=== PATIENT | male | born 1975 | race Caucasian/White ===

== ENCOUNTER 2024-09-29 12:05 | Inpatient (IN) | payer OTHER ==
[2024-09-29] MEDS: LACTATED RINGERS SOLUTION 1000 ML INFUS.BAG IV ONE ×3 (13:24→23:33)
[2024-09-29 13:32] LABS: VENOUS BASE EXCESS -3.8 mmol/L (-2-2); VENOUS O2 SATURATION 95.2 % (70-80); VENOUS PCO2 38.8 mmHg (38-52); VENOUS PH 7.356 (7.310-7.410)
[2024-09-29 13:40] LABS: BASO % 1.7 % (0-2.0); EOS % 1.3 % (0-4.5); HEMATOCRIT 43.3 % (35.4-49); HEMOGLOBIN 15.2 GM/dL (11.7-16.9); LYMPH % 25.1 % (8-40); MCH 31.9 pg (25.7-33.7); MEAN CELL VOLUME 91.3 fl (80-96); MEAN PLT VOLUME 9.6 fl (7.5-11.1); MONO % 6.2 % (3.8-10.2); NEUT % 65.7 % (42.8-82.8); PLATELET COUNT 300 10^3/uL (134-434); RBC 4.75 M/mm3 (4.00-5.60); RDW 12.9 % (11.9-15.9); WHITE BLOOD COUNT 9.6 K/mm3 (4.0-10.0)
[2024-09-29 13:42] LABS: URINE APPEARANCE CLEAR; URINE BILIRUBIN NEGATIVE (NEGATIVE); URINE COLOR YELLOW; URINE GLUCOSE (UA) 3+ (NEGATIVE); URINE KETONE 1+ (NEGATIVE); URINE LEUK ESTERASE NEGATIVE (NEGATIVE); URINE NITRITE NEGATIVE (NEGATIVE); URINE PROTEIN NEGATIVE (NEGATIVE); URINE UROBILINOGEN 0.2 mg/dL (0.2-1.0)
[2024-09-29 14:01] LABS: CHLORIDE 79 mmol/L (98-107); POTASSIUM 4.9 mmol/L (3.5-5.1); SODIUM 120 mmol/L (136-145)
[2024-09-29 14:04] LABS: ALBUMIN 3.8 g/dl (3.4-5.0)
[2024-09-29 14:05] LABS: ANION GAP 19 mmol/L (4-13); BLOOD UREA NITROGEN 46.7 mg/dL (7-18); CALCIUM 10.2 mg/dL (8.5-10.1); CO2 22 mmol/L (21-32)
[2024-09-29 14:08] LABS: CREATININE 1.6 mg/dL (0.55-1.3); PHOSPHOROUS 5.8 mg/dL (2.5-4.9)
[2024-09-29 14:09] LABS: BILIRUBIN,TOTAL 0.8 mg/dL (0.2-1)
[2024-09-29 14:10] LABS: ALK PHOS 97 U/L (45-117)
[2024-09-29 14:20] LABS: SGOT/AST 29 U/L (15-37); TOT PROT 7.6 g/dl (6.4-8.2)
[2024-09-29 14:43] LABS: GLUCOSE,RANDOM 811 mg/dL (74-106)
[2024-09-29] MEDS: SODIUM CHLORIDE 0.9% 500 ML INFUS.BAG IV ONE (15:16)
[2024-09-29 15:52] LABS: CHLORIDE 86 mmol/L (98-107); POTASSIUM 4.8 mmol/L (3.5-5.1); SODIUM 125 mmol/L (136-145)
[2024-09-29 15:54] LABS: ANION GAP 12 mmol/L (4-13); BLOOD UREA NITROGEN 40.2 mg/dL (7-18); CALCIUM 9.2 mg/dL (8.5-10.1); CO2 27 mmol/L (21-32)
[2024-09-29 15:57] LABS: CREATININE 1.4 mg/dL (0.55-1.3)
[2024-09-29] MEDS ORDERED: POTASSIUM CHLORIDE 10 MEQ in SODIUM CHLORIDE 1,000 ML IVPB SCH (16:00)
[2024-09-29 16:01] LABS: GLUCOSE,RANDOM 605 mg/dL (74-106)
[2024-09-29 16:22] LABS: HIV INTERPRETATION NEGATIVE (NEGATIVE)
[2024-09-29] MEDS: SODIUM CHLORIDE 0.9%/KCL 20 MEQ/1,000 ML INFUS.BAG IV SCH (17:47)
[2024-09-29] MEDS: INSULIN REGULAR 100 UNITS in SODIUM CHLORIDE 99 ML IVPB SCH (17:47)
[2024-09-29 20:34] LABS: POTASSIUM 3.7 mmol/L (3.5-5.1)
[2024-09-29 20:36] LABS: BLOOD UREA NITROGEN 34.1 mg/dL (7-18); CALCIUM 9.2 mg/dL (8.5-10.1)
[2024-09-29 20:40] LABS: CREATININE 1.1 mg/dL (0.55-1.3)
[2024-09-29] MEDS: MUPIROCIN 2% TOPICAL OINTMENT FOR DECOLONIZATION NS SCH (22:30)
[2024-09-29] MEDS: CHLORHEXIDINE GLUCONATE 4% CLEANSER FOR DECOLONIZATION TP SCH (22:30)
[2024-09-29 23:15] LABS: BASO % 0.3 % (0-2.0); EOS % 3.4 % (0-4.5); HEMATOCRIT 38.8 % (35.4-49); HEMOGLOBIN 13.5 GM/dL (11.7-16.9); LYMPH % 44.8 % (8-40); MCH 31.5 pg (25.7-33.7); MCHC 34.8 g/dl (32.0-35.9); MEAN CELL VOLUME 90.4 fl (80-96); MONO % 6.3 % (3.8-10.2); NEUT % 45.2 % (42.8-82.8); PLATELET COUNT 237 10^3/uL (134-434); RBC 4.29 M/mm3 (4.00-5.60); RDW 12.9 % (11.9-15.9); WHITE BLOOD COUNT 8.7 K/mm3 (4.0-10.0)
[2024-09-29 23:25] LABS: POTASSIUM 4.1 mmol/L (3.5-5.1)
[2024-09-29 23:27] LABS: BLOOD UREA NITROGEN 30.4 mg/dL (7-18); CALCIUM 8.7 mg/dL (8.5-10.1); MAGNESIUM 2.2 mg/dL (1.8-2.4)
[2024-09-29 23:31] LABS: CREATININE 0.8 mg/dL (0.55-1.3); PHOSPHOROUS 3.8 mg/dL (2.5-4.9)
[2024-09-29 23:32] LABS: BILIRUBIN,TOTAL 0.5 mg/dL (0.2-1)
[2024-09-29] MEDS ORDERED: INSULIN ASPART SLIDING SCALE (NOVOLOG) 1 VIAL SQ SCH (23:40)
[2024-09-29 23:47] LABS: ALBUMIN 2.8 g/dl (3.4-5.0)
[2024-09-29] MEDS ORDERED: INSULIN DRIP - PLEASE ORDER UNDER SETS NR ONE (23:51)
[2024-09-30] MEDS: DEXTROSE 5%-WATER - 1,000 ML IV SCH (00:05)
[2024-09-30] MEDS: D5-NS + 20 MEQ KCL - 20 MEQ/1,000 ML INFUS.BAG IV SCH ×2 (00:51→11:24)
[2024-09-30] MEDS ORDERED: INSULIN REGULAR 100 UNITS in SODIUM CHLORIDE 99 ML IVPB SCH (03:15)
[2024-09-30] MEDS ORDERED: DEXTROSE 50%-WATER 25 GM/50 ML DISP.SYRIN ONE (04:53)
[2024-09-30] MEDS: DEXTROSE 50%-WATER - 25 GM/50 ML VIAL IVPUSH PRN (04:55)
[2024-09-30 08:04] LABS: MAGNESIUM 1.9 mg/dL (1.8-2.4)
[2024-09-30 08:07] LABS: PHOSPHOROUS 2.6 mg/dL (2.5-4.9)
[2024-09-30 09:44] LABS: POTASSIUM 3.3 mmol/L (3.5-5.1)
[2024-09-30 09:46] LABS: CALCIUM 8.4 mg/dL (8.5-10.1)
[2024-09-30 09:50] LABS: CREATININE 0.6 mg/dL (0.55-1.3)
[2024-09-30 09:56] LABS: BLOOD UREA NITROGEN 18.6 mg/dL (7-18)
[2024-09-30] MEDS ORDERED: INSULIN ASPART SLIDING SCALE (NOVOLOG) 1 VIAL SQ SCH ×2 (11:00→23:39)
[2024-09-30] MEDS: INSULIN REGULAR 100 UNITS in SODIUM CHLORIDE 99 ML IVPB SCH (11:21)
[2024-09-30 11:23] LABS: BASO % 2.2 % (0-2.0); EOS % 3.4 % (0-4.5); HEMOGLOBIN 13.1 GM/dL (11.7-16.9); LYMPH % 43.6 % (8-40); MCH 31.3 pg (25.7-33.7); MCHC 34.4 g/dl (32.0-35.9); MEAN CELL VOLUME 90.8 fl (80-96); MEAN PLT VOLUME 9.5 fl (7.5-11.1); MONO % 8.1 % (3.8-10.2); NEUT % 42.7 % (42.8-82.8); PLATELET COUNT 229 10^3/uL (134-434); RBC 4.18 M/mm3 (4.00-5.60); RDW 12.8 % (11.9-15.9); WHITE BLOOD COUNT 8.6 K/mm3 (4.0-10.0)
[2024-09-30] MEDS: POTASSIUM CHLORIDE ORAL LIQUID 20 MEQ/15 ML PO ONE (11:24)
[2024-09-30] MEDS ORDERED: BUPRENORPHINE/NALOXONE 8 MG/2 MG FILM PACKET SL SCH (12:30)
[2024-09-30] MEDS ORDERED: BUPRENORPHINE/NALOXONE 8 MG/2 MG FILM PACKET SL PRN (12:48)
[2024-09-30] MEDS: amLODIPine BESYLATE 5 MG TABLET (FP) PO SCH (12:56)
[2024-09-30] MEDS: ATORVASTATIN CA 40 MG TABLET (FP) PO SCH (12:56)
[2024-09-30] MEDS ORDERED: D5-NS + 20 MEQ KCL - 20 MEQ/1,000 ML INFUS.BAG IV SCH (13:00)
[2024-09-30] MEDS ORDERED: DEXTROSE 5%-NORMAL SALINE 1,000 ML IV SCH (13:00)
[2024-09-30 13:15] LABS: POTASSIUM 3.9 mmol/L (3.5-5.1)
[2024-09-30 13:17] LABS: CALCIUM 8.2 mg/dL (8.5-10.1)
[2024-09-30 13:18] LABS: ALBUMIN 2.9 g/dl (3.4-5.0); BLOOD UREA NITROGEN 20.7 mg/dL (7-18)
[2024-09-30 13:21] LABS: CREATININE 0.7 mg/dL (0.55-1.3)
[2024-09-30 13:22] LABS: BILIRUBIN,TOTAL 0.5 mg/dL (0.2-1)
[2024-09-30] MEDS: TRIAMTERENE AND HCTZ - 37.5 MG/25 MG CAPSULE PO SCH (13:24)
[2024-09-30] MEDS: VALSARTAN 160 MG TABLET PO SCH (13:24)
[2024-09-30] MEDS: FENOFIBRIC ACID 135 MG CAP PO SCH (15:16)
[2024-09-30] MEDS: BUPRENORPHINE/NALOXONE 8 MG/2 MG FILM PACKET SL SCH (15:54)
[2024-09-30] MEDS: POLYETHYLENE GLYCOL (HEALTHYLAX) 3350 17 GM PACKET PO PRN (16:59)
[2024-09-30 18:46] LABS: POTASSIUM 3.9 mmol/L (3.5-5.1)
[2024-09-30 18:48] LABS: ALBUMIN 3.1 g/dl (3.4-5.0); CALCIUM 8.3 mg/dL (8.5-10.1)
[2024-09-30 18:49] LABS: BLOOD UREA NITROGEN 18.1 mg/dL (7-18)
[2024-09-30 18:52] LABS: CREATININE 0.6 mg/dL (0.55-1.3)
[2024-09-30 18:53] LABS: BILIRUBIN,TOTAL 0.3 mg/dL (0.2-1); TOT PROT 6.6 g/dl (6.4-8.2)
[2024-09-30] MEDS: DEXTROSE 5%-NORMAL SALINE 1,000 ML IV SCH (21:00)
[2024-09-30] MEDS: HEPARIN NA (PORCINE) 5,000 UNITS/ML 1ML VIAL SQ SCH (21:54)
[2024-10-01] MEDS: INSULIN REGULAR 100 UNITS in SODIUM CHLORIDE 99 ML IVPB SCH ×2 (01:30→17:05)
[2024-10-01 08:21] LABS: BASO % 0.4 % (0-2.0); EOS % 3.3 % (0-4.5); HEMATOCRIT 36.8 % (35.4-49); HEMOGLOBIN 12.7 GM/dL (11.7-16.9); MCH 31.6 pg (25.7-33.7); MCHC 34.4 g/dl (32.0-35.9); MEAN CELL VOLUME 91.8 fl (80-96); MEAN PLT VOLUME 9.4 fl (7.5-11.1); MONO % 5.8 % (3.8-10.2); NEUT % 46.5 % (42.8-82.8); PLATELET COUNT 208 10^3/uL (134-434); RBC 4.01 M/mm3 (4.00-5.60); RDW 12.9 % (11.9-15.9); WHITE BLOOD COUNT 8.6 K/mm3 (4.0-10.0)
[2024-10-01 08:45] LABS: POTASSIUM 3.3 mmol/L (3.5-5.1)
[2024-10-01 08:49] LABS: CHOLESTEROL 298 mg/dL (50-200)
[2024-10-01 08:50] LABS: LDL CHOLESTEROL (ONLY SJRH) 89 mg/dL (5-100)
[2024-10-01 08:51] LABS: ALBUMIN 2.7 g/dl (3.4-5.0); CALCIUM 8.3 mg/dL (8.5-10.1)
[2024-10-01 08:52] LABS: BLOOD UREA NITROGEN 14.4 mg/dL (7-18); HDL CHOLESTEROL 32 mg/dL (40-60)
[2024-10-01 08:53] LABS: MAGNESIUM 2.2 mg/dL (1.8-2.4)
[2024-10-01 08:55] LABS: BILIRUBIN,TOTAL 0.3 mg/dL (0.2-1); CREATININE 0.6 mg/dL (0.55-1.3); TOT PROT 5.4 g/dl (6.4-8.2)
[2024-10-01] MEDS: POTASSIUM CHLORIDE TABS 20 MEQ TABLET.ER (FP) PO SCH (10:16)
[2024-10-01] MEDS: INSULIN (LEVEMIR) 100 UNITS/ML UNITS SQ SCH ×2 (13:09→21:16)
[2024-10-01 15:43] VITALS: BMI 27.3
[2024-10-01] MEDS ORDERED: POTASSIUM CHLORIDE ORAL LIQUID 20 MEQ/15 ML PO ONE (16:55)
[2024-10-01] MEDS: DEXTROSE 5%-WATER - 1,000 ML IV SCH (17:07)
[2024-10-01] MEDS: KCL 10 MEQ IVPB 10 MEQ/100 ML INFUS.BAG IVPB SCH (17:45)
[2024-10-01 19:28] LABS: BLOOD UREA NITROGEN 13.8 mg/dL (7-18); CALCIUM 8.3 mg/dL (8.5-10.1)
[2024-10-01 19:30] LABS: CREATININE 0.7 mg/dL (0.55-1.3)
[2024-10-02] MEDS: DEXTROSE 50%-WATER 25 GM/50 ML DISP.SYRIN IVPUSH PRN (05:53)
[2024-10-02 07:38] LABS: BASO % 0.6 % (0-2.0); EOS % 4.4 % (0-4.5); HEMATOCRIT 36.6 % (35.4-49); HEMOGLOBIN 12.6 GM/dL (11.7-16.9); LYMPH % 43.7 % (8-40); MCH 31.4 pg (25.7-33.7); MCHC 34.3 g/dl (32.0-35.9); MEAN CELL VOLUME 91.5 fl (80-96); MEAN PLT VOLUME 9.4 fl (7.5-11.1); NEUT % 43.3 % (42.8-82.8); PLATELET COUNT 192 10^3/uL (134-434); RBC 4.01 M/mm3 (4.00-5.60); RDW 12.8 % (11.9-15.9); WHITE BLOOD COUNT 7.3 K/mm3 (4.0-10.0)
[2024-10-02 08:08] LABS: POTASSIUM 4.2 mmol/L (3.5-5.1)
[2024-10-02 08:11] LABS: ALBUMIN 2.8 g/dl (3.4-5.0); BLOOD UREA NITROGEN 8.7 mg/dL (7-18); CALCIUM 8.2 mg/dL (8.5-10.1); MAGNESIUM 2.2 mg/dL (1.8-2.4)
[2024-10-02 08:14] LABS: CREATININE 0.7 mg/dL (0.55-1.3)
[2024-10-02 08:15] LABS: PHOSPHOROUS 2.8 mg/dL (2.5-4.9)
[2024-10-02 08:16] LABS: BILIRUBIN,TOTAL 0.4 mg/dL (0.2-1); TOT PROT 5.7 g/dl (6.4-8.2)
[2024-10-02 19:00] LABS: POTASSIUM 3.9 mmol/L (3.5-5.1)
[2024-10-02 19:02] LABS: BLOOD UREA NITROGEN 10.8 mg/dL (7-18)
[2024-10-02 19:05] LABS: CREATININE 0.8 mg/dL (0.55-1.3)
[2024-10-02] MEDS: INSULIN REGULAR 100 UNITS in SODIUM CHLORIDE 99 ML IVPB SCH (20:16)
[2024-10-02] MEDS: DEXTROSE 10%-WATER - 1,000 ML IV SCH ×2 (20:16→21:56)
[2024-10-03] MEDS: DEXTROSE 10%-WATER - 1,000 ML IV SCH (01:30)
[2024-10-03 06:53] LABS: POTASSIUM 4.1 mmol/L (3.5-5.1)
[2024-10-03 06:56] LABS: BLOOD UREA NITROGEN 13.7 mg/dL (7-18); CALCIUM 8.4 mg/dL (8.5-10.1); MAGNESIUM 2.2 mg/dL (1.8-2.4)
[2024-10-03 07:00] LABS: CREATININE 0.8 mg/dL (0.55-1.3); PHOSPHOROUS 2.9 mg/dL (2.5-4.9)
[2024-10-03] MEDS ORDERED: INSULIN (LEVEMIR) 100 UNITS/ML UNITS SQ ONE ×2 (12:49→18:53)
[2024-10-03] MEDS: INSULIN (LEVEMIR) 100 UNITS/ML UNITS SQ ONE (13:02)
[2024-10-03] MEDS: INSULIN ASPART SLIDING SCALE (NOVOLOG) 1 VIAL SQ SCH (17:40)
[2024-10-03 18:48] VITALS: RESP 18
[2024-10-03] MEDS ORDERED: POLYETHYLENE GLYCOL (HEALTHYLAX) 3350 17 GM PACKET PO PRN (20:05)
[2024-10-03] MEDS ORDERED: MUPIROCIN 2% TOPICAL OINTMENT FOR DECOLONIZATION NS SCH (22:00)
[2024-10-03] MEDS ORDERED: CHLORHEXIDINE GLUCONATE 4% CLEANSER FOR DECOLONIZATION TP SCH (22:00)
[2024-10-03] MEDS: INSULIN (LEVEMIR) 100 UNITS/ML UNITS SQ SCH (22:11)
[2024-10-03] MEDS: HEPARIN NA (PORCINE) 5,000 UNITS/ML 1ML VIAL SQ SCH (22:12)
[2024-10-04] MEDS: BUPRENORPHINE/NALOXONE 8 MG/2 MG FILM PACKET SL SCH (09:55)
[2024-10-04] MEDS: FENOFIBRIC ACID 135 MG CAP PO SCH (09:57)
[2024-10-04] MEDS: ATORVASTATIN CA 40 MG TABLET (FP) PO SCH (09:57)
[2024-10-04] MEDS: VALSARTAN 160 MG TABLET PO SCH (09:58)
[2024-10-04] MEDS: amLODIPine BESYLATE 5 MG TABLET (FP) PO SCH (09:58)
[2024-10-04] MEDS: TRIAMTERENE AND HCTZ - 37.5 MG/25 MG CAPSULE PO SCH (09:59)
[2024-10-04 11:05] LABS: BASO % 0.6 % (0-2.0); EOS % 4.7 % (0-4.5); HEMATOCRIT 37.4 % (35.4-49); HEMOGLOBIN 13.1 GM/dL (11.7-16.9); LYMPH % 35.4 % (8-40); MCH 31.7 pg (25.7-33.7); MCHC 34.9 g/dl (32.0-35.9); MEAN CELL VOLUME 90.9 fl (80-96); MEAN PLT VOLUME 9.1 fl (7.5-11.1); MONO % 9.2 % (3.8-10.2); NEUT % 50.1 % (42.8-82.8); PLATELET COUNT 232 10^3/uL (134-434); RBC 4.12 M/mm3 (4.00-5.60); RDW 12.8 % (11.9-15.9); WHITE BLOOD COUNT 8.7 K/mm3 (4.0-10.0)
[2024-10-04 11:15] LABS: POTASSIUM 4.1 mmol/L (3.5-5.1)
[2024-10-04 11:22] LABS: BLOOD UREA NITROGEN 18.2 mg/dL (7-18); CALCIUM 8.8 mg/dL (8.5-10.1); MAGNESIUM 2.2 mg/dL (1.8-2.4)
[2024-10-04 11:25] LABS: CREATININE 0.8 mg/dL (0.55-1.3)
[2024-10-04 11:26] LABS: PHOSPHOROUS 2.4 mg/dL (2.5-4.9)
[2024-10-04] MEDS: INSULIN (LEVEMIR) 100 UNITS/ML UNITS SQ SCH (21:24)
[2024-10-05 06:14] VITALS: BP 116/77; PULSE 76; TEMP 97.5
[2024-10-05 08:30] LABS: BASO % 0.7 % (0-2.0); EOS % 4.7 % (0-4.5); HEMATOCRIT 37.6 % (35.4-49); HEMOGLOBIN 12.6 GM/dL (11.7-16.9); LYMPH % 34.4 % (8-40); MCH 30.8 pg (25.7-33.7); MCHC 33.4 g/dl (32.0-35.9); MEAN CELL VOLUME 92.1 fl (80-96); MEAN PLT VOLUME 8.8 fl (7.5-11.1); MONO % 9.2 % (3.8-10.2); PLATELET COUNT 250 10^3/uL (134-434); RBC 4.08 M/mm3 (4.00-5.60); RDW 12.7 % (11.9-15.9); WHITE BLOOD COUNT 10.1 K/mm3 (4.0-10.0)
[2024-10-05 08:48] LABS: MAGNESIUM 2.3 mg/dL (1.8-2.4)
== END 2024-10-05 10:24 | disposition home or self-care (01) | DRG 638 ==
LOC: JER 12:05 → JERBED 14:50 → JICU 21:39 → J5S 10-03 20:00
PROVIDERS: ADMIT Internal Medicine Pulmonary Disease; ATTEND Internal Medicine
DX: E11.00 Type 2 diabetes mellitus with hyperosmolarity without nonketotic hyperglycemic-hyperosmolar coma (NKHHC) (principal); N17.9 Acute kidney failure, unspecified; E78.5 Hyperlipidemia, unspecified; I10 Essential (primary) hypertension; E78.1 Pure hyperglyceridemia; Z79.4 Long term (current) use of insulin
CPT/HCPCS: 36415; 80048; 80053; 80061; 81003; 82010; 82803; 82962; 83036; 83690; 83735; 83930; 84100; 84478; 85025; 86803; 87086; 87389; 87481; 87635; 93005; 93010; 99291; J1644